=== PATIENT | female | born 1990 | race Caucasian/White ===

== ENCOUNTER 2017-09-08 12:02 | Emergency (ER) | payer BC, MEDICAID ==
--- NOTE | 2017-09-08 12:22 | ER Document Report ---
ED GI/ - General Mode of Arrival: Ambulatory Information source: Patient TRAVEL OUTSIDE OF THE [place] IN LAST 30 DAYS: No - HPI Patient complains to provider of: Abdominal pain - General Chief Complaint: Vaginal Bleeding Stated Complaint: VAGINAL BLEEDING Time Seen by Provider: 09/08/17 12:11 Notes: Patient is a 27 year old female presenting to the emergency department for vaginal bleeding, abdominal cramping, and back pain. Patient's pain is in her low back and radiates up into her upper back. Patient states that she had negative tests both at home () and at urgent care (Saturday). Patient states she also had a urine analysis done on Saturday at the urgent care to test for a UTI. Patient states that is believes she is having a miscarriage. Patient states she her last menstrual period was on 08/20/17 and it was shorter than normal. Patient is not taking any control. Patient states her had a vasectomy. Patient is A0. Patient states she has also had some nausea. Patient denies any burning with urination but states she is having to urinate slightly more frequently. Patient states her bleeding is not more than a normal period. Patient has no known allergies. (CLARE PEDROZA) - Related Data Allergies/Adverse Reactions: No Known Allergies Allergy (Verified 09/08/17 12:07) Past Medical History - General Information source: Patient Last Menstrual Period: 08/20/17 - Social History Smoking Status: Current Every Day Smoker Chew tobacco use (# tins/day): No Frequency of alcohol use: Occasional Drug Abuse: None Family History: None Patient has suicidal ideation: No Patient has homicidal ideation: No Surgical Hx: Negative - Immunizations Hx Diphtheria, Pertussis, Tetanus Vaccination: No Review of Systems - Review of Systems Gastrointestinal: Abdominal pain, Nausea. denies: Vomiting Genitourinary: See HPI, Frequency. denies: Burning, Dysuria Female Genitourinary: See HPI, Last menstrual period - 08/20/17, Irregular period , Vaginal bleeding. denies: Vaginal discharge Musculoskeletal: See HPI, Back pain Physical Exam - Vital signs Interpretation: Normal - Vital signs Vitals: Temp Pulse Resp BP Pulse Ox 97.4 F 85 16 124/79 99 09/08/17 12:07 09/08/17 12:07 09/08/17 12:07 09/08/17 12:07 09/08/17 12:07 - Notes Notes: GENERAL: Alert, interacts well. No acute distress. HEAD: Normocephalic, atraumatic. EYES: Pupils equal, round, and reactive to light. Extraocular movements intact. ENT: Oral mucosa moist, tongue midline. NECK: Full range of motion. Supple. Trachea midline. LUNGS: Clear to auscultation bilaterally, no wheezes, rales, or rhonchi. No respiratory distress. HEART: Regular rate and rhythm. No murmurs, gallops, or rubs. ABDOMEN: Soft, non-tender. Non-distended. Bowel sounds present in all 4 quadrants. BACK: Non-tender to palpate. No step-offs or deformities. EXTREMITIES: Moves all 4 extremities spontaneously. No edema. No cyanosis. NEUROLOGICAL: Alert and oriented x3. Normal speech. PSYCH: Normal affect, normal mood. SKIN: Warm, dry, normal turgor. No rashes or lesions noted. (CLARE PEDROZA) No CVA tenderness to percussion. (DIANN TINEO) Course - Re-evaluation Re-evalutation: 09/08/17 13:08 Patient unable to provide urine specimen at this time, states they performed a urinalysis at urgent care on Saturday, discussed with patient that we can certainly do a blood draw for the test instead though this will not fully assess her symptoms of low back pain associated with urinary frequency. In order to get her an answer on the test sooner we will do a blood draw. Discussed with patient that for a slightly irregular occurrence of menstrual bleeding that is not heavier than her usual. And is not associated with lower abdominal pain that is in excess of her usual. That a transvaginal ultrasound would not provide any additional information at this time. Patient states that the doctor urgent care on Saturday told her she would need to follow- up with her crackling press operator to have an ultrasound performed to see why she was bleeding. I discussed with the patient that if her is test is negative this would not provide any additional information during her first episode of irregular vaginal bleeding. Her symptoms are not suggestive of a fibroid, she has no symptoms suggestive of an ovarian cyst or torsion, I discussed both of these with her and the fact that ovarian problems would not cause vaginal bleeding. Discussed that we would likely never know why she is having a single episode of irregular vaginal bleeding but that if she had more episodes in the future she absolutely would need to follow-up with a crackling press operator for a transvaginal ultrasound and potentially hormone levels. These are not appropriate tests to perform in the emergency department at this time. Patient understands my rationale for not ordering a transvaginal ultrasound at this time however is not happy with this decision. 09/08/17 13:59 Urine test is negative, patient requests a serum test as she feels it is more accurate. Serum test is also negative. Patient was once again informed that I doubt this is a miscarriage as both tests here were negative and the test on Saturday was negative. Once again discussed that there is no indication for ultrasound at this time however should she continue to have recurrently irregular bleeding she should follow-up with an [facility] as an outpatient for possible transvaginal ultrasound and possible checking of her hormone levels. Patient will return should she develop vaginal bleeding that saturates more than 1 pad per hour or if she gets dizzy. These would also be indications for CBC and transvaginal ultrasound. Urinalysis did not show any evidence of urinary tract infection, it was sent for culture. (DIANN TINEO) - Vital Signs Vital signs: Temp Pulse Resp BP Pulse Ox 98.7 F 88 16 123/65 99 09/08/17 14:00 09/08/17 14:00 09/08/17 14:00 09/08/17 14:00 09/08/17 14:00 - Laboratory Laboratory results interpreted by me: 09/08/17 13:09 Urine Blood LARGE H Discharge - Discharge Clinical Impression: Vaginal bleeding between periods Condition: Stable Disposition: HOME, SELF-CARE Additional Instructions: Vaginal Bleeding You are having an episode of abnormal bleeding. Today we ruled out as a cause of vaginal bleeding, both your test were negative. Urinalysis did not show any signs of infection. This is been sent for culture, we will call you if it grows out signs of infection that were not seen on testing today. "Dysfunctional uterine bleeding" is due to hormone imbalance, and is especially common at times when the normal cycle is disturbed -- whether by recent , use of control pills or hormones, or impending menopause. If the bleeding is innocent, most commonly a short course of hormones is given to restore the uterus to normal if the bleeding persists. Sometimes, the normal menstrual cycle corrects itself naturally. Sometimes , brief hormone therapy, or even a D&C is required. Your physician will advise you. Treatment for anemia may be required if bleeding is severe. Please return if you bleed through more than 1 pad per hour or if you become dizzy. You should rest and avoid intercourse until the bleeding is controlled. Call the doctor or return for re-examination if you feel faint, have increasing pain, or have a major increase in the amount of bleeding. Referrals: [facility] [Provider Group] - Follow up as needed Scribe Attestation: 09/08/17 15:50 I personally performed the services described in the documentation, reviewed and edited the documentation which was dictated to the scribe in my presence, and it accurately records my words and actions. (DIANN TINEO) Scribe Documentation - Scribe Written by Ml:: Ml Gruber 09/08/17 15:20 acting as scribe for :: Desiree
[2017-09-08 13:29] LABS: APPEARANCE,URINE CLEAR; BILIRUBIN,URINE NEGATIVE (NEGATIVE); GLUCOSE, URINE NEGATIVE (NEGATIVE); KETONES,URINE NEGATIVE (NEGATIVE); LEUKOCYTE ESTERASE,URINE NEGATIVE (NEGATIVE); NITRITE,URINE NEGATIVE (NEGATIVE); PROTEIN,URINE NEGATIVE (NEGATIVE); URINE SPECIFIC GRAVITY 1.021; UROBILINOGEN,URINE NEGATIVE mg/dL (<2.0)
[2017-09-08 14:01] VITALS: BP 123/65
== END 2017-09-08 14:06 | disposition home or self-care (01) ==
LOC: ER 12:02
DX: N93.8 Other specified abnormal uterine and vaginal bleeding (principal); R10.9 Unspecified abdominal pain; R11.0 Nausea; F17.200 Nicotine dependence, unspecified, uncomplicated
CPT/HCPCS: 36415; 81001; 81025; 84703; 87086; 99284

== ENCOUNTER 2018-10-17 11:31 | Emergency (ER) | payer MEDICAID ==
--- NOTE | 2018-10-17 12:55 | ER Document Report ---
ED Medical Screen (RME) - General Chief Complaint: Abdominal Pain Stated Complaint: ABDOMINAL PAIN,VAGINAL DISCHARGE Time Seen by Provider: 10/17/18 12:25 Notes: 28-year-old female patient to the emergency department complaining of fever, lower abdominal pain and vaginal discharge. Denies any change in sexual activity. Not as far she knows. I have greeted and performed a rapid initial assessment of this patient. A comprehensive ED assessment and evaluation of the patient, analysis of test results and completion of the medical decision making process will be conducted by additional ED providers. TRAVEL OUTSIDE OF THE [place] IN LAST 30 DAYS: No - Related Data Allergies/Adverse Reactions: No Known Allergies Allergy (Verified 09/08/17 12:07) Past Medical History Renal/ Medical History: Denies: Hx Peritoneal Dialysis - Immunizations Hx Diphtheria, Pertussis, Tetanus Vaccination: No History of Influenza Vaccine for 09/2017 - 01/2018 Season: Unknown Physical Exam - Vital signs Vitals: Temp Pulse Resp BP Pulse Ox 97.8 F 108 H 16 128/74 H 100 10/17/18 11:55 10/17/18 11:55 10/17/18 11:55 10/17/18 11:55 10/17/18 11:55 - Abdominal Inspection: Normal Distension: No distension Bowel sounds: Normal Tenderness: Tender - She is tenderness in the suprapubic and lower abdominal area. Course - Vital Signs Vital signs: Temp Pulse Resp BP Pulse Ox 97.8 F 108 H 16 128/74 H 100 10/17/18 11:58 10/17/18 11:58 10/17/18 11:58 10/17/18 11:58 10/17/18 11:58
[2018-10-17 13:25] LABS: ABSOLUTE EOSINOPHILS # (AUTO) 0.1 10^3/uL (0.0-0.6); ABSOLUTE LYMPHOCYTES (AUTO) 0.9 10^3/uL (0.5-4.7); ABSOLUTE MONOCYTES (AUTO) 0.5 10^3/uL (0.1-1.4); ABSOLUTE NEUT (AUTO) 9.4 10^3/uL (1.7-8.2); BASOPHILS % (AUTO) 0.2 % (0-2); EOSINOPHILS % (AUTO) 0.9 % (0-6); HEMATOCRIT 42.2 % (36.0-47.0); HEMOGLOBIN 14.6 g/dL (12.0-15.5); LYMPHOCYTES % (AUTO) 8.4 % (13-45); MEAN CORPUSCULAR HEMOGLOBIN 31.4 pg (27.0-33.4); MEAN CORPUSCULAR HGB CONC 34.6 g/dL (32.0-36.0); MEAN CORPUSCULAR VOLUME 91 fl (80-97); MONOCYTES % (AUTO) 4.9 % (3-13); PLATELET COUNT 235 10^3/uL (150-450); RED BLOOD COUNT 4.64 10^6/uL (3.72-5.28); RED CELL DISTRIBUTION WIDTH 14.2 % (11.5-14.0); SEGMENTED NEUTROPHILS % (AUTO) 85.6 % (42-78); TOTAL CELLS COUNTED % (AUTO) 100 %
[2018-10-17 13:32] LABS: APPEARANCE,URINE CLEAR; BILIRUBIN,URINE NEGATIVE (NEGATIVE); COLOR,URINE YELLOW; GLUCOSE, URINE NEGATIVE (NEGATIVE); KETONES,URINE TRACE mg/dL (NEGATIVE); LEUKOCYTE ESTERASE,URINE NEGATIVE (NEGATIVE); NITRITE,URINE NEGATIVE (NEGATIVE); PROTEIN,URINE NEGATIVE (NEGATIVE); URINE SPECIFIC GRAVITY 1.023; UROBILINOGEN,URINE NEGATIVE mg/dL (<2.0)
[2018-10-17] MEDS ORDERED: ONDANSETRON HCL INJ/PF 4 MG/2 ML SDV IV ONE (13:42)
[2018-10-17] MEDS ORDERED: NORMAL SALINE 1000 ML 1,000 ML IV ONE (13:42)
[2018-10-17] MEDS ORDERED: KETOROLAC TROMETHAMINE INJ/PF 30 MG/1 ML SDV IV ONE (13:43)
[2018-10-17 13:44] LABS: ALANINE AMINOTRANSFERASE 22 U/L (9-52); ALBUMIN 4.8 g/dL (3.5-5.0); ALKALINE PHOSPHATASE 60 U/L (38-126); ANION GAP 15 (5-19); ASPARTATE AMINO TRANSFERASE 18 U/L (14-36); BILIRUBIN,DIRECT 0.1 mg/dL (0.0-0.4); BILIRUBIN,TOTAL 0.7 mg/dL (0.2-1.3); BLOOD UREA NITROGEN 15 mg/dL (7-20); CALCIUM 10.1 mg/dL (8.4-10.2); CARBON DIOXIDE 26 mmol/L (22-30); CHLORIDE 101 mmol/L (98-107); GLUCOSE 83 mg/dL (75-110); SODIUM 141.7 mmol/L (137-145)
--- NOTE | 2018-10-17 14:20 | RADIOLOGY REPORT (SQ) ---
EXAM DESCRIPTION: KUB/ABDOMEN (SINGLE VIEW) COMPLETED DATE/TIME: 10/17/2018 2:12 pm REASON FOR STUDY: abd pain COMPARISON: None. NUMBER OF VIEWS: One view. TECHNIQUE: Supine radiographic image of the abdomen acquired. LIMITATIONS: None. FINDINGS: BOWEL GAS PATTERN: Normal bowel gas pattern. No dilated loops. CALCIFICATIONS: No suspicious calcifications. SOFT TISSUES: No gross mass or suggestion of organomegaly. HARDWARE: None in the abdomen. BONES: No acute fracture. No worrisome bone lesions. OTHER: No other significant finding. IMPRESSION: NO RADIOGRAPHIC EVIDENCE FOR ACUTE ABDOMINAL DISEASE. TECHNICAL DOCUMENTATION: JOB ID: [id number] [employer]- All Rights Reserved Reading location - IP/workstation name: [email or web address]
[2018-10-17 14:27] LABS: T.VAGINALIS (WET MOUNT) NO TRICHOMONAS SEEN; WBCS (WET MOUNT) 2+ WBCS SEEN; YEAST (WET MOUNT) NO YEAST SEEN
--- NOTE | 2018-10-17 15:11 | RADIOLOGY REPORT (SQ) ---
EXAM DESCRIPTION: U/S NON OB PEL TV W/DOPPLER COMPLETED DATE/TIME: 10/17/2018 3:01 pm REASON FOR STUDY: abd pain COMPARISON: None. TECHNIQUE: Dynamic and static grayscale images acquired of the pelvis via transvaginal approach and recorded on PACS. Additional selected color Doppler and spectral images recorded. LIMITATIONS: None. FINDINGS: UTERUS: Contour normal. No mass. Uterus is 10 x 7 x 5 cm in size ENDOMETRIAL STRIPE: No focal or generalized thickening. No masses. Endometrial stripe 12 mm in thick ness CERVIX: Closed, 3 cm in length. No nabothian cysts. RIGHT OVARY AND DOPPLER: Normal size, right ovary 2.7 x 1.9 x 1.6 cm in size. No worrisome masses. No rmal arterial vascular flow without evidence for torsion. LEFT OVARY AND DOPPLER: Normal size left ovary 3.2 x 2.7 x 2.3 cm in size. 1.8 cm hemorrhagic cyst. No worrisome masses. Normal arterial vascular flow without evidence for torsion. FREE FLUID: None noted. OTHER: No other significant finding. IMPRESSION: 1.8 CM HEMORRHAGIC CYST LEFT OVARY. OTHERWISE, UNREMARKABLE TRANSVAGINAL PELVIC ULTRASOUND. TECHNICAL DOCUMENTATION: JOB ID: [id number] [employer]- All Rights Reserved Reading location - IP/workstation name: [email or web address]
[2018-10-17 15:14] VITALS: BP 121/61
--- NOTE | 2018-10-17 15:25 | ER Document Report ---
ED General - General Chief Complaint: Abdominal Pain Stated Complaint: ABDOMINAL PAIN,VAGINAL DISCHARGE Time Seen by Provider: 10/17/18 12:25 TRAVEL OUTSIDE OF THE [place] IN LAST 30 DAYS: No - HPI Patient complains to provider of: Abdominal pain vaginal discharge Notes: Patient coming in for abdominal pain vaginal discharge. Approximate 12-24 hours. Patient denies any fever chills nausea by diarrhea. Patient states that she is currently sexually active with her not concern for any STDs at this time denies history of STDs. Patient states pain is in the lower abdomen crampy and more on the left lower quadrant left adnexal side. Patient denies any fevers denies any recent antibiotics denies any travel. - Related Data Allergies/Adverse Reactions: No Known Allergies Allergy (Verified 09/08/17 12:07) Past Medical History - Social History Smoking Status: Unknown if Ever Smoked Chew tobacco use (# tins/day): No Frequency of alcohol use: Occasional Drug Abuse: None Family History: None Patient has suicidal ideation: No Patient has homicidal ideation: No Renal/ Medical History: Denies: Hx Peritoneal Dialysis - Immunizations Hx Diphtheria, Pertussis, Tetanus Vaccination: No Review of Systems - Review of Systems Constitutional: No symptoms reported EENT: No symptoms reported Cardiovascular: No symptoms reported Respiratory: No symptoms reported Gastrointestinal: Abdominal pain, Nausea Genitourinary: No symptoms reported Female Genitourinary: No symptoms reported Musculoskeletal: No symptoms reported Skin: No symptoms reported Hematologic/Lymphatic: No symptoms reported Neurological/Psychological: No symptoms reported -: Yes All other systems reviewed and negative Physical Exam - Vital signs Vitals: Temp Pulse Resp BP Pulse Ox 97.8 F 108 H 16 128/74 H 100 10/17/18 11:55 10/17/18 11:55 10/17/18 11:55 10/17/18 11:55 10/17/18 11:55 Interpretation: Normal - General General appearance: Appears well, Alert - HEENT Head: Normocephalic, Atraumatic Eyes: Normal Pupils: PERRL - Respiratory Respiratory status: No respiratory distress Chest status: Nontender Breath sounds: Normal Chest palpation: Normal - Cardiovascular Rhythm: Regular Heart sounds: Normal auscultation Murmur: No - Abdominal Inspection: Normal Distension: No distension Bowel sounds: Normal Tenderness: Nontender Organomegaly: No organomegaly - Genitourinary External exam: Other Speculum exam: Vaginal discharge Bimanuel exam: Normal - Back Back: Normal, Nontender - Extremities General upper extremity: Normal inspection, Nontender, Normal color, Normal ROM , Normal temperature General lower extremity: Normal inspection, Nontender, Normal color, Normal ROM , Normal temperature, Normal weight bearing. No: Xiomara's sign - Neurological Neuro grossly intact: Yes Cognition: Normal Orientation: AAOx4 [place] Coma Scale Eye Opening: Spontaneous Jennifer Coma Scale Verbal: Oriented [place] Coma Scale Motor: Obeys Commands Jennifer Coma Scale Total: 15 Speech: Normal Motor strength normal: LUE, RUE, LLE, RLE Sensory: Normal - Psychological Associated symptoms: Normal affect, Normal mood - Skin Skin Temperature: Warm Skin Moisture: Dry Skin Color: Normal Course - Re-evaluation Re-evalutation: 10/17/18 19:06 Patient coming in for evaluation of vaginal discharge and abdominal pain. Ultrasound shows signs of a cyst on the left ovary more likely etiology of the patient's pain. Wet mount does not show any signs of any infection GC is negative. Recommend the patient to yourself Tylenol Motrin the patient presents with abdominal pain without signs of peritonitis or other life- threatening or serious etiology. The patient appears stable for discharge and has been instructed to return immediately if the symptoms worsen in any way, or in 8-12hr if not improved for re-evaluation. The patient has been instructed to return if the symptoms worsen or change in any way. 10/17/18 19:07 - Vital Signs Vital signs: Temp Pulse Resp BP Pulse Ox 97.9 F 97 16 121/61 99 10/17/18 15:12 10/17/18 15:12 10/17/18 15:12 10/17/18 15:12 10/17/18 15:12 - Laboratory Result Diagrams: 10/17/18 12:35 10/17/18 12:35 Laboratory results interpreted by me: 10/17/18 10/17/18 12:35 12:35 WBC 11.0 H RDW 14.2 H Seg Neutrophils % 85.6 H Lymphocytes % 8.4 L Absolute Neutrophils 9.4 H Urine Ketones TRACE H Discharge - Discharge Clinical Impression: Ovarian cyst Qualifiers: Laterality: left Qualified Code(s): N83.202 - Unspecified ovarian cyst, left side Condition: Good Disposition: HOME, SELF-CARE Instructions: [facility], Ovarian Cyst ([facility]) Additional Instructions: Laboratory studies not show any infectious etiology of your pain. Also does not show any clear etiology for your vaginal discharge. Your ultrasound does show a left ovarian cyst. Ovarian cyst may explain some of the left-sided abdominal pain. I recommend she follow-up with your primary care physician or GL ACCOUNTANT. Take Tylenol Motrin for pain control Bentyl for crampy pain Zofran for nausea. Prescriptions: Ondansetron [Zofran Odt 4 mg Tablet] 4 mg PO Q4HP PRN #30 tab.rapdis PRN Reason: Ibuprofen [Motrin 600 mg Tablet] 600 mg PO Q8HP PRN #21 tablet PRN Reason: Dicyclomine HCl [Bentyl 20 mg Tablet] 20 mg PO QID #40 tablet Forms: Return to Work Referrals: JAQUAN WADSWORTH PA-C [Primary Care Provider] - Follow up as needed
[2018-10-17 16:00] LABS: CHLAM PCR NOT DETECTED (NOT DETECT); GON PCR NOT DETECTED (NOT DETECT)
== END 2018-10-17 15:28 | disposition home or self-care (01) ==
LOC: ER 11:31
DX: N83.202 Unspecified ovarian cyst, left side (principal); N89.8 Other specified noninflammatory disorders of vagina; R11.0 Nausea
CPT/HCPCS: 99284; 96361; 96374; 96375; 36415; 87086; 87210; 85025; 81025; 80053; 81001; 87491; 87591; 74018; 76830; 93976; J1885; J2405; J7030